=== PATIENT | male | born 1985 | race Native Hawaiian/Other Pacific Islander ===

== ENCOUNTER 2018-06-20 22:46 | Emergency (ER) | payer OTHER ==
[~2018-06-20] VITALS: Ht 182.9 cm; Wt 90.7 kg
[2018-06-21 00:34] LABS: PLATELET COUNT 315 K/uL (142-355)
[2018-06-21 00:42] LABS: POTASSIUM 4.1 mmol/L (3.6-5.2)
[2018-06-21 01:01] VITALS: BP 134/89; TEMP 98.6
== END 2018-06-21 01:01 | disposition home or self-care (01) ==
LOC: ED 22:46
PROVIDERS: Internal Medicine
DX: I10 Essential (primary) hypertension (principal)
CPT/HCPCS: 36415; 80053; 81000; 85027; 99284